=== PATIENT | female | born 1985 | race Two or more races ===

== ENCOUNTER 2020-12-02 20:04 | Emergency (ER) | payer OTHER ==
[~2020-12-02] VITALS: Ht 157.5 cm; Wt 94.3 kg
[2020-12-02] MEDS ORDERED: ASACOL HD800 MG (20:31)
[2020-12-02] MEDS ORDERED: METROGEL-VAGINA70 GM VAG (21:01)
[2020-12-02] MEDS ORDERED: FLAGYL500MG PO (21:01)
== END 2020-12-02 21:12 | disposition home or self-care (01) ==
LOC: ER 20:04
DX: N76.0 Acute vaginitis (principal)

== ENCOUNTER 2020-12-19 20:40 | Emergency (ER) | payer OTHER ==
[~2020-12-19] VITALS: Ht 160 cm; Wt 70.3 kg
[~2020-12-19 20:40] MED LIST: ASACOL HD800 MG; FLAGYL500MG PO; METROGEL-VAGINA70 GM VAG
[2020-12-20] MEDS ORDERED: PEPCID AC20 MG PO (00:43)
[2020-12-20] MEDS ORDERED: ULTRAM50 MG PO (00:43)
[2020-12-20] MEDS ORDERED: INTESTINEX680 M2 PO (00:43)
== END 2020-12-20 00:59 | disposition home or self-care (01) ==
LOC: ER 20:40
DX: R10.84 Generalized abdominal pain (principal); K92.1 Melena

== ENCOUNTER 2021-09-05 16:11 | Emergency (ER) | payer OTHER ==
[~2021-09-05] VITALS: Ht 157.5 cm; Wt 95.3 kg
[~2021-09-05 16:11] MED LIST changes: +INTESTINEX680 M2 PO; +PEPCID AC20 MG PO; +ULTRAM50 MG PO
[2021-09-05] MEDS ORDERED: MESALAMINE800 MG PO (16:21)
[2021-09-05] MEDS ORDERED: TRAMADOL HCL50 MG PO (20:32)
[2021-09-05] MEDS ORDERED: INTESTINEX680 M1 PO (20:32)
[2021-09-05] MEDS ORDERED: CIPRO500 MG PO (20:32)
[2021-09-05] MEDS ORDERED: PEPCID20 MG PO (20:32)
[2021-09-05] MEDS ORDERED: METRONIDAZOLE500 MG PO (20:32)
[2021-09-05] MEDS ORDERED: DICY20TA PO (20:32)
== END 2021-09-05 20:38 | disposition home or self-care (01) ==
LOC: ER 16:11
DX: K52.9 Noninfective gastroenteritis and colitis, unspecified (principal); Z88.2 Allergy status to sulfonamides

== ENCOUNTER 2023-08-17 17:02 | Emergency (ER) | payer OTHER ==
[~2023-08-17] VITALS: Ht 157.5 cm; Wt 79.4 kg
[~2023-08-17 17:02] MED LIST changes: +CIPRO500 MG PO; +DICY20TA PO; +INTESTINEX680 M1 PO; +MESALAMINE800 MG PO; +METRONIDAZOLE500 MG PO; +PEPCID20 MG PO; +TRAMADOL HCL50 MG PO
== END 2023-08-17 21:40 | disposition home or self-care (01) ==
LOC: ER 17:03
DX: B37.31 Acute candidiasis of vulva and vagina (principal); Z88.2 Allergy status to sulfonamides

== ENCOUNTER 2025-01-04 12:08 | Emergency (ER) | payer OTHER ==
[~2025-01-04] VITALS: Ht 157.5 cm; Wt 83.0 kg
[2025-01-04] MEDS ORDERED: LOPERAMIDE HCL 2 MG CAPSULE PO ONE ×2 (13:15→13:34)
[2025-01-04] MEDS ORDERED: 0.9 % SODIUM CHLORIDE 500 ML IV ONE (13:15)
[2025-01-04] MEDS ORDERED: FAMOtidine 10 MG/ML (4ML VIAL) IV ONE (13:15)
[2025-01-04] MEDS ORDERED: ONDANSETRON HCL 2 MG/ML VIAL IV ONE (13:30)
[2025-01-04] MEDS ORDERED: FAMOTIDINE/PF 20 MG/2 ML VIAL ONE (13:34)
[2025-01-04] MEDS ORDERED: ONDANSETRON HCL 2 MG/ML VIAL ONE (13:35)
[2025-01-04 13:36] LABS: BASO % 0.2 % (0.1-1.2); EOS # 0.07 (0.04-0.54); EOS % 1.2 % (0.7-7.0); HEMATOCRIT 35.2 % (34.1-44.9); HEMOGLOBIN 11.3 g/dL (11.2-15.7); LYMPH # 1.23 (1.18-3.74); LYMPH % 20.6 % (19.3-53.1); MEAN CORPUSCULAR HEMOGLOBIN 26.5 pg (25.6-32.2); MONO # 0.41 (0.24-0.82); MONO % 6.9 % (4.7-12.5); NEUT # 4.26 (1.56-6.13); NEUT % 71.1 % (34.0-71.1); PLATELET COUNT 342 K/uL (163-369); RED BLOOD COUNT 4.26 M/uL (3.93-5.22)
[2025-01-04 14:03] LABS: CALCIUM 9.4 mg/dL (8.5-10.1); CREATININE SERUM 0.83 mg/dL (0.55-1.02); GFR 76.53; POTASSIUM 3.74 mEq/L (3.5-5.1)
[2025-01-04 14:23] LABS: PH,URINE 6.5 (5.0-8.0); URINE APPEARANCE Clear; URINE BILIRRUBIN Negative (NEGATIVE); URINE BLOOD Negative; URINE COLOR Yellow; URINE GLUCOSE Negative (NEGATIVE); URINE KETONE Negative (NEGATIVE); URINE LEUKOCYTE Negative; URINE NITRATE Negative; URINE PROTEIN Negative (NEGATIVE); URINE UROBILINOGEN 0.2 E.U./dl
[2025-01-04 14:27] LABS: URINE BACTERIA 122.2 uL (0.0-1933); URINE EPITHELIAL CELLS 4.9 uL (0.0-38.8); URINE RBC 7.2 uL (0.0-20.8); URINE WBC 4.4 uL (0.0-23.2)
== END 2025-01-04 15:28 | disposition home or self-care (01) ==
LOC: ER 12:12
PROVIDERS: General Practice
DX: K52.9 Noninfective gastroenteritis and colitis, unspecified (principal); Z88.2 Allergy status to sulfonamides